=== PATIENT | male | born 1980 | race Asian ===

== ENCOUNTER 2021-09-25 20:34 | Emergency (ER) | payer MEDICAID, OTHER ==
[~2021-09-25] VITALS: Ht 170.2 cm; Wt 113.6 kg
[~2021-09-25 20:34] MED LIST: BISA-151 PO; CITA-144 PO; DOCU-270 PO; MIRT30 PO; RISP2TAB45 PO
[2021-09-25] MEDS ORDERED: KETOROLAC TROMETHAMINE 30 MG/ML VIAL IM ONE (22:30)
[2021-09-25] MEDS ORDERED: CYCLOBENZAPRINE HCL 10 MG TABLET PO ONE (22:30)
[2021-09-26 00:09] VITALS: BP 117/70
== END 2021-09-26 00:37 | disposition home or self-care (01) ==
LOC: EMS 20:40
DX: M54.50 Low back pain, unspecified (principal); F31.9 Bipolar disorder, unspecified; F20.9 Schizophrenia, unspecified; F17.210 Nicotine dependence, cigarettes, uncomplicated; F15.90 Other stimulant use, unspecified, uncomplicated; Z79.899 Other long term (current) drug therapy
CPT/HCPCS: 96372; 99283; J1885